=== PATIENT | female | born 1995 | race Two or more races ===

== ENCOUNTER 2018-07-27 03:34 | Emergency (ER) | payer BC ==
[2018-07-27] MEDS ORDERED: CIPROFLOXACIN-HC OTIC SUSP 10 ML AS ONE (04:21)
[2018-07-27] MEDS ORDERED: CIPROFLOXACIN-HC OTIC SUSP 10 ML ONE (04:59)
--- NOTE | 2018-07-27 05:22 | ER Document Report ---
ED General - General Chief Complaint: Ear Pain Stated Complaint: EAR PAIN Time Seen by Provider: 07/27/18 04:02 Notes: Patient is a 23-year-old female presents with complaint of pain in her left ear. Started in the last 12 hours. No recent swelling. No fevers. No congestion. No other complaints at this time. No trauma to the ear. TRAVEL OUTSIDE OF THE [place] IN LAST 30 DAYS: No - Related Data Allergies/Adverse Reactions: No Known Allergies Allergy (Verified 07/27/18 03:35) Past Medical History - Social History Smoking Status: Never Smoker Frequency of alcohol use: None Drug Abuse: None Family History: Reviewed & Not Pertinent Patient has suicidal ideation: No Patient has homicidal ideation: No Renal/ Medical History: Denies: Hx Peritoneal Dialysis Review of Systems - Review of Systems Notes: My Normal Review Basic REVIEW OF SYSTEMS: CONSTITUTIONAL : Denies fever, chills, or sweats. Denies recent illness. EENT: Pain in left ear. CARDIOVASCULAR: Denies chest pain. RESPIRATORY: Denies cough, cold, or chest congestion. Denies shortness of breath, difficulty breathing, or wheezing. GASTROINTESTINAL: Denies abdominal pain. Denies nausea, vomiting, or diarrhea. MUSCULOSKELETAL: Denies neck or back pain or joint pain or swelling. SKIN: Denies rash or skin lesions. NEUROLOGICAL: Denies altered mental status or loss of consciousness. ALL OTHER SYSTEMS REVIEWED AND NEGATIVE. Physical Exam - Vital signs Vitals: Temp Pulse Resp BP Pulse Ox 97.5 F 98 18 137/87 H 97 07/27/18 03:35 07/27/18 03:35 07/27/18 03:35 07/27/18 03:35 07/27/18 03:35 - Notes Notes: General Appearance: Well nourished, alert, cooperative, no acute distress, mild obvious discomfort. Vitals: reviewed, See vital signs table. Head: no swelling or tenderness to the head Eyes: PERRL, EOMI, Conjuctiva clear Mouth: No decreasd moisture Throat: No tonsillar inflammation, No airway obstruction, No lymphadenopathy Ears:Ears: Right TM and external ears normal-appearing. Left ear has inflammation to the canal consistent with otitis externa. No redness or inflammation over the mastoid. No redness or swelling to the face anterior to the ear. No bleeding from the ear. Neck: Supple, no neck tenderness Neuro: speech clear, oriented x 3, normal affect, responds appropriately to questions. Course - Re-evaluation Re-evalutation: 07/27/18 05:31 Patient is well-appearing. Patient has what appears to be an otitis externa. I did place an ear wick and applied Ciprodex drops and gave her the bottle of Ciprodex drops to use. I encouraged her return to ER if she has fevers, redness or swelling front of the ear or behind the ear over the mastoid process, or if she feels is worse in any way. Patient agrees with plan will be discharged home. Dictation of this chart was performed using voice recognition software; therefore, there may be some unintended grammatical errors. 07/27/18 05:31 - Vital Signs Vital signs: Temp Pulse Resp BP Pulse Ox 97.5 F 98 18 137/87 H 97 07/27/18 03:35 07/27/18 03:35 07/27/18 03:35 07/27/18 03:35 07/27/18 03:35 Discharge - Discharge Clinical Impression: Otitis externa Qualifiers: Otitis externa type: unspecified type Chronicity: acute Laterality: left Qualified Code(s): H60.502 - Unspecified acute noninfective otitis externa, left ear Condition: Good Disposition: HOME, SELF-CARE Instructions: Using Ear Drops with a Wick ([facility]) Additional Instructions: Otitis Externa You have otitis externa -- an infection of the outer ear canal. This can be very painful. It's sometimes called "swimmer's ear," because it often occurs after prolonged water exposure. Many things, such as earwax and dirt in the ear, can contribute to it. The usual treatment is antibiotic/antiinflammatory ear drops. Occasionally, a wick will be placed in the ear to draw in the medicine. Avoid getting water in the ear. Outer ear infections often take longer to heal than you might expect. Some tenderness and ache in the ear may persist for about two weeks. See your physician if you fail to improve as expected. Call the doctor at once if you develop fever, increasing swelling (particularly if it makes your ear "poke out"), severe headache, stiff neck, or decreased hearing. Please face 1-2 drops of the Cipro eardrops in your affected ear twice a day. Please follow-up with your doctor next week for reevaluation. Please return to the ER immediately if you have any redness or swelling to your face or behind her ear. I did place a wick in your ear. This is a small piece of cotton. This will eventually fall out. It is okay for falls out as that means the swelling in your ear canal is improving.
[2018-07-27 05:38] VITALS: BP 126/77
== END 2018-07-27 05:37 | disposition home or self-care (01) ==
LOC: ER 03:34
DX: H60.502 Unspecified acute noninfective otitis externa, left ear (principal)
CPT/HCPCS: 99283; J3490

== ENCOUNTER 2020-06-24 08:24 | Emergency (ER) | payer OTHER, BC ==
[2020-06-24 08:29] VITALS: BP 162/98
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
== END 2020-06-24 09:36 | disposition home or self-care (01) ==
LOC: ER 08:24
DX: S16.1XXA Strain of muscle, fascia and tendon at neck level, initial encounter (principal); I10 Essential (primary) hypertension; M79.601 Pain in right arm; R07.89 Other chest pain; M54.2 Cervicalgia; R07.9 Chest pain, unspecified; M79.631 Pain in right forearm; V89.2XXA Person injured in unspecified motor-vehicle accident, traffic, initial encounter
CPT/HCPCS: 71046; 72125; 99284